=== PATIENT | female | born 1960 | race Caucasian/White ===

== ENCOUNTER 2018-01-17 07:36 | Emergency (ER) | payer OTHER ==
[~2018-01-17] VITALS: Ht 157.5 cm; Wt 95.5 kg
[2018-01-17 08:02] LABS: BASOPHILS % (AUTO) 0.2 % (0-1); EOSINOPHILS % (AUTO) 0.1 % (0-6); HEMATOCRIT 44.5 % (35.0-45.0); HEMOGLOBIN 13.9 g/dl (12.0-16.0); LYMPHOCYTES # (AUTO) 0.2 X10'3 (1.1-4.8); LYMPHOCYTES % (AUTO) 2.6 % (21-51); MEAN CORPUSCULAR HEMOGLOBIN 23.5 PG (27.0-31.0); MEAN CORPUSCULAR HGB CONC 31.2 % (33.0-36.5); MEAN CORPUSCULAR VOLUME 75.3 FL (78-98); MEAN PLATELET VOLUME 10.3 FL (7.4-10.4); MONOCYTES # (AUTO) 0.1 X10'3 (0-0.9); MONOCYTES % (AUTO) 0.6 % (2-12); NEUTROPHILS # (AUTO) 9.3 X10'3 (1.8-7.7); NEUTROPHILS % (AUTO) 96.5 % (42-75); PLATELET COUNT 242 X10'3 (140-440); RED BLOOD COUNT 5.91 X10'6 (4.20-5.60); RED CELL DISTRIBUTION WIDTH 19.2 % (11.5-14.5); WHITE BLOOD COUNT 9.7 X10'3 (4.5-11.0)
[2018-01-17 08:12] LABS: INR 1.1 INR; PARTIAL THROMBOPLASTIN TIME 27 SECONDS (22-32); PROTHROMBIN TIME 11.4 SECONDS (9.0-12.0)
[2018-01-17] MEDS ORDERED: etomidate 2mg/ml inj. IV ONE (08:15)
[2018-01-17] MEDS ORDERED: heparin 10,000 units/1 ML INJ IV ONE (08:15)
[2018-01-17] MEDS ORDERED: fentaNYL/PF 50MCG/1 ML 2ML syringe IV ONE (08:15)
[2018-01-17] MEDS ORDERED: ondansetron/PF 4mg/2ml inj IV ONE (08:15)
[2018-01-17 08:17] LABS: ALANINE AMINOTRANSFERASE 88 U/L (12-78); ALBUMIN 3.4 G/DL (3.4-5.0); ALBUMIN/GLOBULIN RATIO 0.9 (1.1-1.5); ALKALINE PHOSPHATASE 104 IU/L (46-116); ANION GAP 11 (8-16); ASPARTATE AMINO TRANSFERASE 134 U/L (10-37); BILIRUBIN,TOTAL 1.4 MG/DL (0.1-1.0); BLOOD UREA NITROGEN 32 MG/DL (7-18); BUN/CREATININE RATIO 13.3 (6.6-38.0); CALCIUM 9.2 MG/DL (8.5-10.1); CHLORIDE 104 MMOL/L (99-107); GLUCOSE 181 MG/DL (70-104); POTASSIUM 4.4 MMOL/L (3.5-5.1); SODIUM 137 MMOL/L (135-145); TOTAL CARBON DIOXIDE 22.3 MMOL/L (24-32); TOTAL PROTEIN 7.3 G/DL (6.4-8.2); eGFR 21 ML/MIN
[2018-01-17 08:26] LABS: D-DIMER 1.91 MG/L FEU (0-0.50)
[2018-01-17] MEDS ORDERED: normal saline 1000ml 1,000 ML IV ONE (08:30)
[2018-01-17 08:35] LABS: ANISOCYTOSIS 2+; BANDS% (MANUAL) 4 % (0-10); LYMPHOCYTES % (MANUAL) 3 % (21-51); MONOCYTES % (MANUAL) 1 % (2-12); NEUTROPHILS % (MANUAL) 92 % (42-75); PLATELET ESTIMATE NORMAL; TOTAL CELLS COUNTED 100
[2018-01-17 08:36] LABS: ELLIPTOCYTES 1+
[2018-01-17 10:09] VITALS: BP 76/48
[2018-01-18] MEDS ORDERED: GLIP2.5T3 PO (23:22)
[2018-01-18] MEDS ORDERED: MOME17SP BOTHNARES (23:22)
[2018-01-18] MEDS ORDERED: PROG100C16 PO (23:22)
[2018-01-18] MEDS ORDERED: APIX5TAB3 PO (23:22)
[2018-01-18] MEDS ORDERED: DULO-31 PO (23:22)
[2018-01-18] MEDS ORDERED: vitamin b12 (23:22)
[2018-01-18] MEDS ORDERED: PREG200C PO (23:22)
[2018-01-18] MEDS ORDERED: ESCI5TAB PO (23:22)
[2018-01-18] MEDS ORDERED: ATOR40TA PO (23:22)
[2018-01-18] MEDS ORDERED: OMEP40CA37 PO (23:22)
[2018-01-18] MEDS ORDERED: ATEN-169 PO (23:26)
== END 2018-01-17 10:14 | disposition home or self-care (01) ==
LOC: ER 07:37
DX: R07.9 Chest pain, unspecified (principal); R42 Dizziness and giddiness; I48.0 Paroxysmal atrial fibrillation; N28.9 Disorder of kidney and ureter, unspecified; Z98.61 Coronary angioplasty status
CPT/HCPCS: 36415; 71045; 80053; 83880; 84439; 84443; 84484; 85025; 85379; 85610; 85730; 92960; 93005; 96361; 96374; 96375; 99285; J1644; J2405; J3010; J3490; J7030

== ENCOUNTER 2018-01-18 12:52 | Inpatient (IN) | payer OTHER ==
[~2018-01-18] VITALS: Ht 157.5 cm; Wt 104.8 kg
[2018-01-18] MEDS ORDERED: oxyCODONE IR 5mg (immed. release) tablet PO ONE (15:05)
[2018-01-18 15:38] LABS: BASOPHILS % (AUTO) 0.3 % (0-1); EOSINOPHILS # (AUTO) 0.1 X10'3 (0-0.9); EOSINOPHILS % (AUTO) 2.1 % (0-6); HEMATOCRIT 38.9 % (35.0-45.0); HEMOGLOBIN 12.7 g/dl (12.0-16.0); LYMPHOCYTES # (AUTO) 0.4 X10'3 (1.1-4.8); LYMPHOCYTES % (AUTO) 6.6 % (21-51); MEAN CORPUSCULAR HEMOGLOBIN 23.7 PG (27.0-31.0); MEAN CORPUSCULAR HGB CONC 32.6 % (33.0-36.5); MEAN CORPUSCULAR VOLUME 72.8 FL (78-98); MEAN PLATELET VOLUME 9.8 FL (7.4-10.4); MONOCYTES # (AUTO) 0.3 X10'3 (0-0.9); MONOCYTES % (AUTO) 5.3 % (2-12); NEUTROPHILS % (AUTO) 85.7 % (42-75); PLATELET COUNT 176 X10'3 (140-440); RED BLOOD COUNT 5.34 X10'6 (4.20-5.60); RED CELL DISTRIBUTION WIDTH 19.2 % (11.5-14.5); WHITE BLOOD COUNT 5.8 X10'3 (4.5-11.0)
[2018-01-18 15:46] LABS: INR 1.1 INR; PARTIAL THROMBOPLASTIN TIME 31 SECONDS (22-32); PROTHROMBIN TIME 11.1 SECONDS (9.0-12.0)
[2018-01-18 15:58] LABS: ALANINE AMINOTRANSFERASE 125 U/L (12-78); ALBUMIN 3.1 G/DL (3.4-5.0); ALBUMIN/GLOBULIN RATIO 0.8 (1.1-1.5); ALKALINE PHOSPHATASE 106 IU/L (46-116); ANION GAP 10 (8-16); ASPARTATE AMINO TRANSFERASE 78 U/L (10-37); BILIRUBIN,TOTAL 1.7 MG/DL (0.1-1.0); BLOOD UREA NITROGEN 46 MG/DL (7-18); BUN/CREATININE RATIO 23.4 (6.6-38.0); CHLORIDE 107 MMOL/L (99-107); CREATININE 1.97 MG/DL (0.40-0.90); GLUCOSE 137 MG/DL (70-104); MAGNESIUM 2.2 MG/DL (1.5-2.4); SODIUM 138 MMOL/L (135-145); TOTAL CARBON DIOXIDE 20.7 MMOL/L (24-32); TOTAL PROTEIN 6.9 G/DL (6.4-8.2); eGFR 26 ML/MIN
[2018-01-18] MEDS ORDERED: acetaminophen 325mg tablet PO PRN ×2 (17:05)
[2018-01-18] MEDS ORDERED: magnesium 4gm in 100ml NS 100 ML IV PRN (17:05)
[2018-01-18] MEDS ORDERED: potassium Cl 20 mEq SR tablet PO PRN ×2 (17:05)
[2018-01-18] MEDS ORDERED: dextrose ORAL solution 15 GM/59 ML bottle PO PRN ×2 (17:05)
[2018-01-18] MEDS ORDERED: mag hydrox/Alum hydrox/simeth 30ml oral suspension PO PRN (17:05)
[2018-01-18] MEDS ORDERED: MESSAGE TO PHARMACY PO ONE (17:05)
[2018-01-18] MEDS ORDERED: glucagon, human recombinant 1mg kit SUBCUT PRN (17:05)
[2018-01-18] MEDS ORDERED: ondansetron/PF 4mg/2ml inj IV PRN (17:05)
[2018-01-18] MEDS ORDERED: magnesium hydroxide 30ml (MOM) UD suspension PO PRN (17:05)
[2018-01-18] MEDS ORDERED: potassium Cl 40MEQ/NS 500ml 500 ML IV PRN ×2 (17:05)
[2018-01-18] MEDS ORDERED: insulin Lispro (HumaLOG) vial - multi-dose SQ SCH (17:05)
[2018-01-18] MEDS ORDERED: magnesium 2GM in 50ml NS 50 ML IV PRN (17:05)
[2018-01-18] MEDS ORDERED: HYDROcodone/acetaminophen 5mg/325mg tablet PO PRN (17:05)
[2018-01-18] MEDS ORDERED: magnesium Cl slow-release 64mg tablet PO PRN (17:05)
[2018-01-18] MEDS ORDERED: dextrose 50%-water 50ml dispensing syringe IV PRN ×2 (17:05)
[2018-01-18 18:12] LABS: CLARITY,URINE CLEAR (Clear); COLOR,URINE ORANGE (Yellow); LEUKOCYTE ESTERASE ,URINE NEGATIVE (Neg); OCCULT BLOOD,URINE NEGATIVE (Neg)
[2018-01-18 18:19] LABS: UA COLLECTION TYPE CLN CATCH MIDSTREAM
[2018-01-18 18:22] LABS: BACTERIA,URINE NONE SEEN /HPF (Neg); MUCUS STRANDS NONE SEEN /LPF (Neg); RBC,URINE NONE SEEN /HPF (0-2); SQUAMOUS EPITHELIAL CELL,UR FEW /LPF (FEW); WBC,URINE NONE SEEN /HPF (0-4)
[2018-01-18 18:31] LABS: HEMOGLOBIN A1C 6.2 % (4.5-6.2)
[2018-01-18 18:46] LABS: URINE AMPHETAMINE SCREEN NEGATIVE (Neg); URINE BARBITUATE SCREEN NEGATIVE (Neg); URINE BENZODIAZEPINES SCREEN NEGATIVE (Neg); URINE CANNABINOID SCREEN POSITIVE (Neg); URINE COCAINE SCREEN NEGATIVE (Neg); URINE METHADONE SCREEN NEGATIVE (Neg); URINE OPIATE SCREEN NEGATIVE (Neg); URINE PHENCYCLIDINE SCREEN NEGATIVE (Neg)
[2018-01-18] MEDS: normal saline 1000ml 1,000 ML IV SCH (18:46)
[2018-01-18] MEDS: HYDROcodone/acetaminophen 10/325mg tab PO PRN ×2 (19:10→23:23)
[2018-01-18 19:30] VITALS: BP 90/49
[2018-01-18] MEDS: insulin glargine (Lantus) pen - multi-dose SQ SCH (21:00)
[2018-01-18] MEDS ORDERED: temazepam 15mg capsule PO PRN (21:00)
[2018-01-18] MEDS: heparin, porcine 5000 units/ml vial SQ SCH (21:05)
[2018-01-18] MEDS ORDERED: normal saline 250ml IV soln 250 ML IV ONE (21:25)
[2018-01-18 22:00] VITALS: BP 88/48
[2018-01-18] MEDS ORDERED: normal saline 1000ml 1,000 ML IVB ONE (23:21)
[2018-01-18] MEDS ORDERED: DULO-31 PO (23:22)
[2018-01-18] MEDS ORDERED: ESCI5TAB PO (23:22)
[2018-01-18] MEDS ORDERED: GLIP2.5T3 PO (23:22)
[2018-01-18] MEDS ORDERED: OMEP40CA37 PO (23:22)
[2018-01-18] MEDS ORDERED: vitamin b12 (23:22)
[2018-01-18] MEDS ORDERED: APIX5TAB3 PO (23:22)
[2018-01-18] MEDS ORDERED: ATOR40TA PO (23:22)
[2018-01-18] MEDS ORDERED: PROG100C16 PO (23:22)
[2018-01-18] MEDS ORDERED: MOME17SP BOTHNARES (23:22)
[2018-01-18] MEDS ORDERED: PREG200C PO (23:22)
[2018-01-18] MEDS ORDERED: ATEN-169 PO (23:26)
[2018-01-19] VITALS (20 sets, daily range): BP systolic 76–123; BP diastolic 46–76
[2018-01-19] MEDS: normal saline 1000ml 1,000 ML IV SCH (00:21)
[2018-01-19] MEDS ORDERED: normal saline 1000ml 1,000 ML IV ONE (01:20)
[2018-01-19 01:57] LABS: ALBUMIN 2.5 G/DL (3.4-5.0); ANION GAP 12 (8-16); BLOOD UREA NITROGEN 47 MG/DL (7-18); BUN/CREATININE RATIO 26.1 (6.6-38.0); CALCIUM 8.3 MG/DL (8.5-10.1); CHLORIDE 109 MMOL/L (99-107); GLUCOSE 146 MG/DL (70-104); MAGNESIUM 2.2 MG/DL (1.5-2.4); POTASSIUM 4.6 MMOL/L (3.5-5.1); SODIUM 137 MMOL/L (135-145); TOTAL CARBON DIOXIDE 15.8 MMOL/L (24-32); TROPONIN I < 0.04 NG/ML (0.0-0.05); eGFR 29 ML/MIN
[2018-01-19 02:10] LABS: BASOPHILS % (AUTO) 0.6 % (0-1); EOSINOPHILS # (AUTO) 0.1 X10'3 (0-0.9); EOSINOPHILS % (AUTO) 3.1 % (0-6); HEMATOCRIT 35.2 % (35.0-45.0); HEMOGLOBIN 11.3 g/dl (12.0-16.0); LYMPHOCYTES # (AUTO) 0.4 X10'3 (1.1-4.8); LYMPHOCYTES % (AUTO) 9.6 % (21-51); MEAN CORPUSCULAR HEMOGLOBIN 23.8 PG (27.0-31.0); MEAN CORPUSCULAR VOLUME 74.3 FL (78-98); MEAN PLATELET VOLUME 10.9 FL (7.4-10.4); MONOCYTES # (AUTO) 0.2 X10'3 (0-0.9); MONOCYTES % (AUTO) 4.6 % (2-12); NEUTROPHILS # (AUTO) 3.8 X10'3 (1.8-7.7); NEUTROPHILS % (AUTO) 82.1 % (42-75); PLATELET COUNT 143 X10'3 (140-440); RED BLOOD COUNT 4.74 X10'6 (4.20-5.60); RED CELL DISTRIBUTION WIDTH 19.5 % (11.5-14.5); WHITE BLOOD COUNT 4.7 X10'3 (4.5-11.0)
[2018-01-19 02:37] LABS: ANISOCYTOSIS 2+; ELLIPTOCYTES FEW; LARGE PLATELETS FEW; PLATELET ESTIMATE NORMAL
[2018-01-19] MEDS ORDERED: digoxin 250mcg/ml 2ml ampule IV ONE (02:55)
[2018-01-19] MEDS ORDERED: amiodarone 150mg/dext, iso-os 100 ML IV ONE (03:55)
[2018-01-19] MEDS: amiodarone/D5 360MG/200ML BAG 200 ML IV SCH ×4 (04:20→14:15)
[2018-01-19] MEDS: heparin, porcine 5000 units/ml vial SQ SCH (07:31)
[2018-01-19] MEDS: pantoprazole 40mg Tablet.DR PO SCH (07:31)
[2018-01-19] MEDS: atorvastatin 20mg tablet PO SCH (07:31)
[2018-01-19] MEDS: K and/or MAG REPLACEMENT MC SCH (07:45)
[2018-01-19] MEDS ORDERED: escitalopram 20mg tablet PO SCH (08:00)
[2018-01-19] MEDS ORDERED: citalopram 20mg tablet PO SCH (08:00)
[2018-01-19] MEDS ORDERED: atenolol 25mg tablet PO SCH (08:00)
[2018-01-19 09:29] LABS: ALANINE AMINOTRANSFERASE 102 U/L (12-78); ALBUMIN/GLOBULIN RATIO 0.7 (1.1-1.5); ALKALINE PHOSPHATASE 97 IU/L (46-116); ASPARTATE AMINO TRANSFERASE 57 U/L (10-37); BILIRUBIN,TOTAL 1.1 MG/DL (0.1-1.0)
[2018-01-19] MEDS: HYDROcodone/acetaminophen 10/325mg tab PO PRN ×2 (10:40→20:16)
[2018-01-19] MEDS ORDERED: non-formulary drug (Pregabalin (Lyrica) 1 CAP) PO SCH (16:00)
[2018-01-19] MEDS: atenolol 25mg tablet PO SCH (20:15)
[2018-01-19] MEDS: apixaban 5mg tablet PO SCH (20:15)
[2018-01-19] MEDS: pregabalin 25mg capsule PO SCH (20:16)
[2018-01-19] MEDS: insulin glargine (Lantus) pen - multi-dose SQ SCH (21:00)
[2018-01-19] MEDS ORDERED: pregabalin 75mg capsule PO SCH (21:00)
[2018-01-20] MEDS: HYDROcodone/acetaminophen 10/325mg tab PO PRN ×3 (01:15→19:35)
[2018-01-20 03:00] VITALS: BP 103/47
[2018-01-20 06:30] VITALS: BP 101/39
[2018-01-20 07:17] LABS: BASOPHILS % (AUTO) 0.5 % (0-1); EOSINOPHILS # (AUTO) 0.2 X10'3 (0-0.9); EOSINOPHILS % (AUTO) 5.7 % (0-6); HEMOGLOBIN 10.9 g/dl (12.0-16.0); LYMPHOCYTES # (AUTO) 0.4 X10'3 (1.1-4.8); LYMPHOCYTES % (AUTO) 10.9 % (21-51); MEAN CORPUSCULAR HEMOGLOBIN 23.9 PG (27.0-31.0); MEAN CORPUSCULAR VOLUME 74.6 FL (78-98); MEAN PLATELET VOLUME 10.7 FL (7.4-10.4); MONOCYTES # (AUTO) 0.3 X10'3 (0-0.9); MONOCYTES % (AUTO) 8.4 % (2-12); NEUTROPHILS # (AUTO) 2.7 X10'3 (1.8-7.7); NEUTROPHILS % (AUTO) 74.5 % (42-75); PLATELET COUNT 126 X10'3 (140-440); RED BLOOD COUNT 4.56 X10'6 (4.20-5.60); RED CELL DISTRIBUTION WIDTH 19.7 % (11.5-14.5); WHITE BLOOD COUNT 3.6 X10'3 (4.5-11.0)
[2018-01-20 07:37] LABS: ALANINE AMINOTRANSFERASE 63 U/L (12-78); ALBUMIN 2.1 G/DL (3.4-5.0); ALBUMIN/GLOBULIN RATIO 0.6 (1.1-1.5); ALKALINE PHOSPHATASE 80 IU/L (46-116); ANION GAP 8 (8-16); ASPARTATE AMINO TRANSFERASE 27 U/L (10-37); BLOOD UREA NITROGEN 31 MG/DL (7-18); CALCIUM 8.3 MG/DL (8.5-10.1); CHLORIDE 112 MMOL/L (99-107); CREATININE 1.24 MG/DL (0.40-0.90); GLUCOSE 126 MG/DL (70-104); POTASSIUM 4.6 MMOL/L (3.5-5.1); SODIUM 141 MMOL/L (135-145); TOTAL CARBON DIOXIDE 21.4 MMOL/L (24-32); TOTAL PROTEIN 5.4 G/DL (6.4-8.2); eGFR 44 ML/MIN
[2018-01-20 07:40] LABS: LARGE PLATELETS FEW; PLATELET ESTIMATE DECREASED
[2018-01-20] MEDS: pantoprazole 40mg Tablet.DR PO SCH (07:41)
[2018-01-20] MEDS: apixaban 5mg tablet PO SCH ×2 (07:42→19:34)
[2018-01-20] MEDS: atorvastatin 20mg tablet PO SCH (07:43)
[2018-01-20] MEDS: pregabalin 25mg capsule PO SCH ×3 (07:43→21:00)
[2018-01-20] MEDS: citalopram 20mg tablet PO SCH (07:43)
[2018-01-20] MEDS: duloxetine 30mg CAPSULE.DR PO SCH (07:44)
[2018-01-20] MEDS: atenolol 25mg tablet PO SCH ×2 (07:45→19:34)
[2018-01-20] MEDS: K and/or MAG REPLACEMENT MC SCH (08:00)
[2018-01-20] MEDS ORDERED: escitalopram 20mg tablet PO SCH (08:00)
[2018-01-20] MEDS ORDERED: non-formulary drug (Atorvastatin Calcium* (Lipitor*) 1 TAB) PO SCH (08:00)
[2018-01-20] MEDS ORDERED: atenolol 50mg tablet PO SCH (08:00)
[2018-01-20 11:00] VITALS: BP 145/81
[2018-01-20 16:22] VITALS: BP 135/81
[2018-01-20] MEDS ORDERED: NUT.TX.GLUC.INTOLER,LAC-FR,REG (BOOST GLUCOSE CONTROL) 237 ML PO SCH (18:00)
[2018-01-20 19:00] VITALS: BP 119/76
[2018-01-20] MEDS: insulin glargine (Lantus) pen - multi-dose SQ SCH (21:00)
[2018-01-20 23:00] VITALS: BP 119/69
[2018-01-21] MEDS: HYDROcodone/acetaminophen 10/325mg tab PO PRN ×3 (01:02→13:14)
[2018-01-21 03:00] VITALS: BP 113/64
[2018-01-21 05:41] LABS: BASOPHILS % (AUTO) 0.6 % (0-1); EOSINOPHILS # (AUTO) 0.4 X10'3 (0-0.9); EOSINOPHILS % (AUTO) 8.7 % (0-6); HEMATOCRIT 34.8 % (35.0-45.0); HEMOGLOBIN 11.3 g/dl (12.0-16.0); LYMPHOCYTES # (AUTO) 0.5 X10'3 (1.1-4.8); MEAN CORPUSCULAR HEMOGLOBIN 23.9 PG (27.0-31.0); MEAN CORPUSCULAR HGB CONC 32.5 % (33.0-36.5); MEAN CORPUSCULAR VOLUME 73.6 FL (78-98); MEAN PLATELET VOLUME 10.9 FL (7.4-10.4); MONOCYTES # (AUTO) 0.4 X10'3 (0-0.9); MONOCYTES % (AUTO) 8.9 % (2-12); NEUTROPHILS # (AUTO) 2.8 X10'3 (1.8-7.7); NEUTROPHILS % (AUTO) 68.8 % (42-75); PLATELET COUNT 129 X10'3 (140-440); RED BLOOD COUNT 4.72 X10'6 (4.20-5.60); RED CELL DISTRIBUTION WIDTH 19.4 % (11.5-14.5); WHITE BLOOD COUNT 4.1 X10'3 (4.5-11.0)
[2018-01-21 06:06] LABS: ALANINE AMINOTRANSFERASE 55 U/L (12-78); ALBUMIN 2.2 G/DL (3.4-5.0); ALBUMIN/GLOBULIN RATIO 0.6 (1.1-1.5); ALKALINE PHOSPHATASE 81 IU/L (46-116); ANION GAP 9 (8-16); ASPARTATE AMINO TRANSFERASE 24 U/L (10-37); BILIRUBIN,TOTAL 1.1 MG/DL (0.1-1.0); BLOOD UREA NITROGEN 26 MG/DL (7-18); BUN/CREATININE RATIO 22.8 (6.6-38.0); CALCIUM 8.6 MG/DL (8.5-10.1); CHLORIDE 110 MMOL/L (99-107); CREATININE 1.14 MG/DL (0.40-0.90); GLUCOSE 112 MG/DL (70-104); MAGNESIUM 1.9 MG/DL (1.5-2.4); POTASSIUM 4.5 MMOL/L (3.5-5.1); SODIUM 141 MMOL/L (135-145); TOTAL CARBON DIOXIDE 22.3 MMOL/L (24-32); TOTAL PROTEIN 5.6 G/DL (6.4-8.2); eGFR 49 ML/MIN
[2018-01-21 06:30] VITALS: BP 122/66
[2018-01-21 07:06] LABS: ANISOCYTOSIS 2+; ELLIPTOCYTES 1+; LARGE PLATELETS FEW; PLATELET ESTIMATE DECREASED
[2018-01-21] MEDS: atorvastatin 20mg tablet PO SCH (07:36)
[2018-01-21] MEDS: apixaban 5mg tablet PO SCH (07:37)
[2018-01-21] MEDS: duloxetine 30mg CAPSULE.DR PO SCH (07:37)
[2018-01-21] MEDS: pantoprazole 40mg Tablet.DR PO SCH (07:37)
[2018-01-21] MEDS: citalopram 20mg tablet PO SCH (07:38)
[2018-01-21] MEDS: atenolol 25mg tablet PO SCH (07:38)
[2018-01-21] MEDS: pregabalin 25mg capsule PO SCH ×2 (07:38→13:13)
[2018-01-21] MEDS: K and/or MAG REPLACEMENT MC SCH (08:00)
[2018-01-21 11:00] VITALS: BP 123/74
== END 2018-01-21 15:25 | disposition home or self-care (01) | DRG 184 ==
LOC: ER 12:52 → ED HOLD 17:03 → EDBEDREQ 17:55 → ORTHO 4S 19:30 → PCU 3S 01-19 02:35
PROVIDERS: ADMIT Internal Medicine; ATTEND Internal Medicine
DX: S22.42XA Multiple fractures of ribs, left side, initial encounter for closed fracture (principal); J93.9 Pneumothorax, unspecified; E11.22 Type 2 diabetes mellitus with diabetic chronic kidney disease; N17.9 Acute kidney failure, unspecified; E11.8 Type 2 diabetes mellitus with unspecified complications; N18.3 Chronic kidney disease, stage 3 (moderate); I95.9 Hypotension, unspecified; J90 Pleural effusion, not elsewhere classified; I48.2 Chronic atrial fibrillation; I48.91 Unspecified atrial fibrillation; E86.0 Dehydration; E78.5 Hyperlipidemia, unspecified; M79.7 Fibromyalgia; F12.90 Cannabis use, unspecified, uncomplicated; G89.29 Other chronic pain; J45.909 Unspecified asthma, uncomplicated; K21.9 Gastro-esophageal reflux disease without esophagitis; K57.90 Diverticulosis of intestine, part unspecified, without perforation or abscess without bleeding; Z98.84 Bariatric surgery status; Z79.01 Long term (current) use of anticoagulants; Y93.89 Activity, other specified; Y92.89 Other specified places as the place of occurrence of the external cause; W18.39XA Other fall on same level, initial encounter; E66.9 Obesity, unspecified
CPT/HCPCS: 36415; 70450; 71046; 71100; 71250; 80053; 80305; 81001; 82948; 83036; 83605; 83735; 83880; 84443; 84484; 85025; 85610; 85730; 87070; 93005; 93306; 97116; 97162; 97530; 99285; J0282; J1160; J1644; J1815; J2405; J7030

== ENCOUNTER 2018-02-02 06:05 | Inpatient (IN) | payer OTHER ==
[~2018-02-02] VITALS: Ht 157.5 cm; Wt 97.7 kg
[~2018-02-02 06:05] MED LIST: APIX5TAB3 PO; ATEN-169 PO; ATOR40TA PO; DULO-31 PO; ESCI5TAB PO; GLIP2.5T3 PO; MOME17SP BOTHNARES; OMEP40CA37 PO; PREG200C PO; PROG100C16 PO; vitamin b12
[2018-02-02 07:04] LABS: BASOPHILS % (AUTO) 0.3 % (0-1); EOSINOPHILS # (AUTO) 0.7 X10'3 (0-0.9); EOSINOPHILS % (AUTO) 8.2 % (0-6); HEMATOCRIT 32.5 % (35.0-45.0); HEMOGLOBIN 10.3 g/dl (12.0-16.0); LYMPHOCYTES % (AUTO) 12.3 % (21-51); MEAN CORPUSCULAR HEMOGLOBIN 24.2 PG (27.0-31.0); MEAN CORPUSCULAR HGB CONC 31.6 % (33.0-36.5); MEAN CORPUSCULAR VOLUME 76.8 FL (78-98); MEAN PLATELET VOLUME 9.4 FL (7.4-10.4); MONOCYTES # (AUTO) 0.8 X10'3 (0-0.9); MONOCYTES % (AUTO) 9.7 % (2-12); NEUTROPHILS # (AUTO) 5.7 X10'3 (1.8-7.7); NEUTROPHILS % (AUTO) 69.5 % (42-75); PLATELET COUNT 342 X10'3 (140-440); RED BLOOD COUNT 4.23 X10'6 (4.20-5.60); RED CELL DISTRIBUTION WIDTH 22.6 % (11.5-14.5); WHITE BLOOD COUNT 8.2 X10'3 (4.5-11.0)
[2018-02-02 07:27] LABS: ALANINE AMINOTRANSFERASE 22 U/L (12-78); ALBUMIN 2.1 G/DL (3.4-5.0); ALBUMIN/GLOBULIN RATIO 0.5 (1.1-1.5); ALKALINE PHOSPHATASE 122 IU/L (46-116); ANION GAP 9 (8-16); ASPARTATE AMINO TRANSFERASE 18 U/L (10-37); BILIRUBIN,TOTAL 0.4 MG/DL (0.1-1.0); BLOOD UREA NITROGEN 29 MG/DL (7-18); BUN/CREATININE RATIO 24.2 (6.6-38.0); CALCIUM 8.2 MG/DL (8.5-10.1); CHLORIDE 112 MMOL/L (99-107); GLUCOSE 162 MG/DL (70-104); POTASSIUM 4.6 MMOL/L (3.5-5.1); SODIUM 143 MMOL/L (135-145); TOTAL CARBON DIOXIDE 22.1 MMOL/L (24-32); TOTAL PROTEIN 6.6 G/DL (6.4-8.2); eGFR 46 ML/MIN
[2018-02-02] MEDS ORDERED: ondansetron/PF 4mg/2ml inj IV PRN ×2 (09:25→09:30)
[2018-02-02] MEDS ORDERED: acetaminophen 325mg tablet PO PRN ×2 (09:25→09:30)
[2018-02-02] MEDS ORDERED: mag hydrox/Alum hydrox/simeth 30ml oral suspension PO PRN ×2 (09:25→09:30)
[2018-02-02] MEDS ORDERED: magnesium hydroxide 30ml (MOM) UD suspension PO PRN ×2 (09:25→09:30)
[2018-02-02] MEDS ORDERED: magnesium 2GM in 50ml NS 50 ML IV PRN (09:30)
[2018-02-02] MEDS ORDERED: potassium Cl 40MEQ/NS 500ml 500 ML IV PRN ×2 (09:30)
[2018-02-02] MEDS ORDERED: magnesium Cl slow-release 64mg tablet PO PRN (09:30)
[2018-02-02] MEDS ORDERED: HYDROcodone/acetaminophen 5mg/325mg tablet PO PRN (09:30)
[2018-02-02] MEDS ORDERED: potassium Cl 20 mEq SR tablet PO PRN ×2 (09:30)
[2018-02-02] MEDS ORDERED: magnesium 4gm in 100ml NS 100 ML IV PRN (09:30)
[2018-02-02] MEDS ORDERED: bisacodyl 10mg suppository rectal RC PRN (09:30)
[2018-02-02] MEDS: furosemide 20 MG/2 ML vial IV SCH ×2 (09:43→19:46)
[2018-02-02] MEDS: HYDROcodone/acetaminophen 10/325mg tab PO PRN ×3 (09:50→19:42)
[2018-02-02] MEDS: CefTRIAXone/D5W-Rocephin 1gm 50 ML IV SCH (09:51)
[2018-02-02] MEDS ORDERED: CYAN10006 IM (10:52)
[2018-02-02] MEDS: morphine 4 MG/ML inj SYRINge IV PRN ×2 (11:20→19:59)
[2018-02-02] MEDS ORDERED: cyanocobalamin 1,000 mcg/ml inj IM SCH (11:25)
[2018-02-02] MEDS ORDERED: non-formulary drug (Pregabalin (Lyrica) 1 CAP) PO SCH (16:00)
[2018-02-02] MEDS: pregabalin 25mg capsule PO SCH (17:03)
[2018-02-02] MEDS ORDERED: progesterone, micronized 100mg capsule PO ONE (17:15)
[2018-02-02] MEDS: progesterone, micronized 100mg capsule PO SCH (17:17)
[2018-02-02] MEDS: docusate sod 100mg capsule PO SCH (19:43)
[2018-02-02] MEDS ORDERED: metoprolol tartrate 1mg/ml inj IV ONE (21:30)
[2018-02-02 22:15] VITALS: BP 102/78
[2018-02-03] VITALS (24 sets, daily range): BP systolic 82–130; BP diastolic 49–90
[2018-02-03] MEDS: pregabalin 25mg capsule PO SCH ×3 (00:19→16:21)
[2018-02-03] MEDS: HYDROcodone/acetaminophen 10/325mg tab PO PRN ×3 (02:46→20:09)
[2018-02-03] MEDS ORDERED: metoprolol tartrate 1mg/ml inj IV ONE (03:10)
[2018-02-03 06:50] LABS: BASOPHILS # (AUTO) 0.1 X10'3 (0-0.2); BASOPHILS % (AUTO) 1.4 % (0-1); EOSINOPHILS % (AUTO) 11.7 % (0-6); HEMATOCRIT 34.6 % (35.0-45.0); LYMPHOCYTES # (AUTO) 1.9 X10'3 (1.1-4.8); LYMPHOCYTES % (AUTO) 21.9 % (21-51); MEAN CORPUSCULAR HEMOGLOBIN 24.3 PG (27.0-31.0); MEAN CORPUSCULAR HGB CONC 31.7 % (33.0-36.5); MEAN CORPUSCULAR VOLUME 76.7 FL (78-98); MEAN PLATELET VOLUME 9.7 FL (7.4-10.4); MONOCYTES % (AUTO) 11.6 % (2-12); NEUTROPHILS # (AUTO) 4.6 X10'3 (1.8-7.7); NEUTROPHILS % (AUTO) 53.4 % (42-75); PLATELET COUNT 384 X10'3 (140-440); RED BLOOD COUNT 4.51 X10'6 (4.20-5.60); RED CELL DISTRIBUTION WIDTH 22.3 % (11.5-14.5); WHITE BLOOD COUNT 8.6 X10'3 (4.5-11.0)
[2018-02-03 07:00] LABS: ANION GAP 8 (8-16); BLOOD UREA NITROGEN 25 MG/DL (7-18); BUN/CREATININE RATIO 20.3 (6.6-38.0); CALCIUM 8.1 MG/DL (8.5-10.1); CHLORIDE 108 MMOL/L (99-107); CREATININE 1.23 MG/DL (0.40-0.90); GLUCOSE 118 MG/DL (70-104); MAGNESIUM 1.9 MG/DL (1.5-2.4); POTASSIUM 4.4 MMOL/L (3.5-5.1); SODIUM 141 MMOL/L (135-145); TOTAL CARBON DIOXIDE 24.8 MMOL/L (24-32); eGFR 45 ML/MIN
[2018-02-03] MEDS ORDERED: non-formulary drug (Atorvastatin Calcium* (Lipitor*) 1 TAB) PO SCH (08:00)
[2018-02-03] MEDS: K and/or MAG REPLACEMENT MC SCH (08:00)
[2018-02-03] MEDS ORDERED: non-formulary drug (Omeprazole (Prilosec) 1 CAP) PO SCH (08:00)
[2018-02-03] MEDS ORDERED: PROGESTERONE MICRONIZED PO SCH (08:00)
[2018-02-03] MEDS: duloxetine 30mg CAPSULE.DR PO SCH (08:18)
[2018-02-03] MEDS: atorvastatin 20mg tablet PO SCH (08:19)
[2018-02-03] MEDS: pantoprazole 40mg Tablet.DR PO SCH (08:19)
[2018-02-03] MEDS: furosemide 20 MG/2 ML vial IV SCH (08:19)
[2018-02-03] MEDS: docusate sod 100mg capsule PO SCH ×2 (08:19→19:59)
[2018-02-03] MEDS: CefTRIAXone/D5W-Rocephin 1gm 50 ML IV SCH (08:19)
[2018-02-03] MEDS: atenolol 50mg tablet PO SCH (08:26)
[2018-02-03] MEDS ORDERED: diltiazem-NS 100mg/100ml 100 ML IV SCH (08:55)
[2018-02-03] MEDS ORDERED: LIDOcaine 1% 30ml preserv. free vial IJ STA (10:47)
[2018-02-03 12:29] LABS: GLUCOSE,BODY FLUID 127 MG/DL; LDH,BODY FLUID 378 U/L; TOTAL PROTEIN,BODY FLUID 3.7 G/DL
[2018-02-03 12:31] LABS: BFSOURCE LEFT PLEURAL FLD; PLEURAL FLUID PH 7.318 (7.63-7.65)
[2018-02-03 12:46] LABS: EOSINOPHILS,BODY FLUID 7 %; LYMPHOCYTES,BODY FLUID 82 %; MONOCYTES,BODY FLUID 4 %; NEUTROPHILS,BODY FLUID 7 %
[2018-02-03 12:48] LABS: BF RBC COUNT 146000 /CU MM; BF WBC COUNT 613 /CU MM (0-1000); BFAPPEAR BLOODY; BFCOLOR RED; BFVOLUME 49 ML
[2018-02-03] MEDS: diltiazem-NS 100mg/100ml 100 ML IV SCH (13:27)
[2018-02-04] VITALS (8 sets, daily range): BP systolic 98–122; BP diastolic 47–89
[2018-02-04] MEDS: pregabalin 25mg capsule PO SCH ×4 (00:05→23:33)
[2018-02-04] MEDS: diltiazem-NS 100mg/100ml 100 ML IV SCH (01:31)
[2018-02-04 05:55] LABS: BASOPHILS % (AUTO) 0.5 % (0-1); EOSINOPHILS # (AUTO) 0.7 X10'3 (0-0.9); EOSINOPHILS % (AUTO) 9.5 % (0-6); HEMATOCRIT 32.9 % (35.0-45.0); HEMOGLOBIN 10.3 g/dl (12.0-16.0); LYMPHOCYTES # (AUTO) 1.3 X10'3 (1.1-4.8); LYMPHOCYTES % (AUTO) 17.7 % (21-51); MEAN CORPUSCULAR HEMOGLOBIN 24.1 PG (27.0-31.0); MEAN CORPUSCULAR HGB CONC 31.3 % (33.0-36.5); MEAN CORPUSCULAR VOLUME 77.1 FL (78-98); MEAN PLATELET VOLUME 9.1 FL (7.4-10.4); MONOCYTES # (AUTO) 1.1 X10'3 (0-0.9); MONOCYTES % (AUTO) 14.6 % (2-12); NEUTROPHILS # (AUTO) 4.3 X10'3 (1.8-7.7); NEUTROPHILS % (AUTO) 57.7 % (42-75); PLATELET COUNT 316 X10'3 (140-440); RED BLOOD COUNT 4.27 X10'6 (4.20-5.60); RED CELL DISTRIBUTION WIDTH 21.8 % (11.5-14.5); WHITE BLOOD COUNT 7.5 X10'3 (4.5-11.0)
[2018-02-04 06:07] LABS: ALBUMIN 1.8 G/DL (3.4-5.0); ANION GAP 7 (8-16); BLOOD UREA NITROGEN 25 MG/DL (7-18); BUN/CREATININE RATIO 23.1 (6.6-38.0); CALCIUM 8.3 MG/DL (8.5-10.1); CHLORIDE 107 MMOL/L (99-107); CREATININE 1.08 MG/DL (0.40-0.90); GLUCOSE 111 MG/DL (70-104); MAGNESIUM 1.9 MG/DL (1.5-2.4); POTASSIUM 4.3 MMOL/L (3.5-5.1); SODIUM 139 MMOL/L (135-145); TOTAL CARBON DIOXIDE 24.7 MMOL/L (24-32); eGFR 52 ML/MIN
[2018-02-04] MEDS: K and/or MAG REPLACEMENT MC SCH (08:00)
[2018-02-04] MEDS ORDERED: LIDOcaine 1%/PF (10mg/ml) 5ml vial ONE (08:06)
[2018-02-04] MEDS: docusate sod 100mg capsule PO SCH ×2 (08:13→19:10)
[2018-02-04] MEDS: atenolol 50mg tablet PO SCH (08:13)
[2018-02-04] MEDS: pantoprazole 40mg Tablet.DR PO SCH (08:13)
[2018-02-04] MEDS: progesterone, micronized 100mg capsule PO SCH (08:14)
[2018-02-04] MEDS: duloxetine 30mg CAPSULE.DR PO SCH (08:14)
[2018-02-04] MEDS: atorvastatin 20mg tablet PO SCH (08:14)
[2018-02-04] MEDS: HYDROcodone/acetaminophen 10/325mg tab PO PRN ×4 (08:20→23:33)
[2018-02-04] MEDS: diltiazem 30mg tablet PO SCH ×3 (11:16→19:10)
[2018-02-05] VITALS (7 sets, daily range): BP systolic 84–123; BP diastolic 42–98
[2018-02-05] MEDS: diltiazem 30mg tablet PO SCH ×2 (01:30→02:00)
[2018-02-05] MEDS: morphine 4 MG/ML inj SYRINge IV PRN ×3 (03:08→20:36)
[2018-02-05 06:00] LABS: BASOPHILS # (AUTO) 0.1 X10'3 (0-0.2); EOSINOPHILS # (AUTO) 0.9 X10'3 (0-0.9); EOSINOPHILS % (AUTO) 13.5 % (0-6); HEMATOCRIT 31.3 % (35.0-45.0); LYMPHOCYTES # (AUTO) 1.5 X10'3 (1.1-4.8); MEAN CORPUSCULAR HEMOGLOBIN 24.5 PG (27.0-31.0); MEAN CORPUSCULAR HGB CONC 31.8 % (33.0-36.5); MEAN CORPUSCULAR VOLUME 76.9 FL (78-98); MEAN PLATELET VOLUME 9.1 FL (7.4-10.4); MONOCYTES % (AUTO) 14.3 % (2-12); NEUTROPHILS # (AUTO) 3.5 X10'3 (1.8-7.7); NEUTROPHILS % (AUTO) 50.2 % (42-75); PLATELET COUNT 331 X10'3 (140-440); RED BLOOD COUNT 4.08 X10'6 (4.20-5.60)
[2018-02-05 06:09] LABS: ALBUMIN 1.7 G/DL (3.4-5.0); ANION GAP 4 (8-16); BLOOD UREA NITROGEN 23 MG/DL (7-18); BUN/CREATININE RATIO 20.4 (6.6-38.0); CALCIUM 8.3 MG/DL (8.5-10.1); CHLORIDE 106 MMOL/L (99-107); CREATININE 1.13 MG/DL (0.40-0.90); GLUCOSE 121 MG/DL (70-104); MAGNESIUM 1.9 MG/DL (1.5-2.4); POTASSIUM 4.6 MMOL/L (3.5-5.1); SODIUM 137 MMOL/L (135-145); TOTAL CARBON DIOXIDE 26.7 MMOL/L (24-32); eGFR 49 ML/MIN
[2018-02-05] MEDS: docusate sod 100mg capsule PO SCH ×2 (07:50→20:32)
[2018-02-05] MEDS: pantoprazole 40mg Tablet.DR PO SCH (07:50)
[2018-02-05] MEDS: progesterone, micronized 100mg capsule PO SCH (07:50)
[2018-02-05] MEDS: atenolol 50mg tablet PO SCH (07:50)
[2018-02-05] MEDS: atorvastatin 20mg tablet PO SCH (07:50)
[2018-02-05] MEDS: pregabalin 25mg capsule PO SCH ×3 (07:51→23:35)
[2018-02-05] MEDS: HYDROcodone/acetaminophen 10/325mg tab PO PRN ×2 (07:51→23:37)
[2018-02-05] MEDS: duloxetine 30mg CAPSULE.DR PO SCH (07:51)
[2018-02-05] MEDS: K and/or MAG REPLACEMENT MC SCH (08:00)
[2018-02-05] MEDS: pregabalin 75mg capsule PO SCH (23:35)
[2018-02-06 02:00] VITALS: BP 115/70
[2018-02-06] MEDS: morphine 4 MG/ML inj SYRINge IV PRN (02:40)
[2018-02-06 05:32] LABS: BASOPHILS % (AUTO) 0.5 % (0-1); EOSINOPHILS # (AUTO) 0.8 X10'3 (0-0.9); HEMATOCRIT 34.7 % (35.0-45.0); HEMOGLOBIN 10.9 g/dl (12.0-16.0); LYMPHOCYTES # (AUTO) 1.4 X10'3 (1.1-4.8); LYMPHOCYTES % (AUTO) 22.9 % (21-51); MEAN CORPUSCULAR HEMOGLOBIN 24.3 PG (27.0-31.0); MEAN CORPUSCULAR HGB CONC 31.5 % (33.0-36.5); MEAN CORPUSCULAR VOLUME 77.3 FL (78-98); MEAN PLATELET VOLUME 9.3 FL (7.4-10.4); MONOCYTES # (AUTO) 0.7 X10'3 (0-0.9); MONOCYTES % (AUTO) 10.9 % (2-12); NEUTROPHILS # (AUTO) 3.2 X10'3 (1.8-7.7); NEUTROPHILS % (AUTO) 52.7 % (42-75); PLATELET COUNT 194 X10'3 (140-440); RED BLOOD COUNT 4.49 X10'6 (4.20-5.60); RED CELL DISTRIBUTION WIDTH 21.7 % (11.5-14.5)
[2018-02-06 06:00] VITALS: BP 100/61
[2018-02-06 06:07] LABS: ALBUMIN 1.9 G/DL (3.4-5.0); ANION GAP 7 (8-16); BLOOD UREA NITROGEN 21 MG/DL (7-18); BUN/CREATININE RATIO 22.3 (6.6-38.0); CALCIUM 8.5 MG/DL (8.5-10.1); CHLORIDE 105 MMOL/L (99-107); CREATININE 0.94 MG/DL (0.40-0.90); GLUCOSE 103 MG/DL (70-104); POTASSIUM 4.7 MMOL/L (3.5-5.1); SODIUM 136 MMOL/L (135-145); eGFR 61 ML/MIN
[2018-02-06] MEDS: atorvastatin 20mg tablet PO SCH (07:29)
[2018-02-06] MEDS: pantoprazole 40mg Tablet.DR PO SCH (07:29)
[2018-02-06] MEDS: atenolol 50mg tablet PO SCH (07:29)
[2018-02-06] MEDS: docusate sod 100mg capsule PO SCH ×2 (07:29→20:15)
[2018-02-06] MEDS: pregabalin 75mg capsule PO SCH ×2 (07:29→15:11)
[2018-02-06] MEDS: progesterone, micronized 100mg capsule PO SCH (07:30)
[2018-02-06] MEDS: pregabalin 25mg capsule PO SCH ×2 (07:30→15:11)
[2018-02-06] MEDS: duloxetine 30mg CAPSULE.DR PO SCH (07:30)
[2018-02-06] MEDS: HYDROcodone/acetaminophen 10/325mg tab PO PRN ×3 (07:34→22:01)
[2018-02-06] MEDS: K and/or MAG REPLACEMENT MC SCH (08:00)
[2018-02-06 11:00] VITALS: BP 112/70
[2018-02-06 15:00] VITALS: BP 113/56
[2018-02-06 18:00] VITALS: BP 138/50
[2018-02-06 22:00] VITALS: BP 114/60
[2018-02-07] MEDS: pregabalin 25mg capsule PO SCH ×3 (00:32→16:01)
[2018-02-07] MEDS: pregabalin 75mg capsule PO SCH ×3 (00:32→16:01)
[2018-02-07 02:00] VITALS: BP 109/57
[2018-02-07 05:34] LABS: BASOPHILS % (AUTO) 0.6 % (0-1); EOSINOPHILS # (AUTO) 0.6 X10'3 (0-0.9); EOSINOPHILS % (AUTO) 9.1 % (0-6); HEMATOCRIT 32.3 % (35.0-45.0); HEMOGLOBIN 10.4 g/dl (12.0-16.0); LYMPHOCYTES # (AUTO) 1.3 X10'3 (1.1-4.8); LYMPHOCYTES % (AUTO) 21.2 % (21-51); MEAN CORPUSCULAR HEMOGLOBIN 24.4 PG (27.0-31.0); MEAN CORPUSCULAR HGB CONC 32.1 % (33.0-36.5); MEAN CORPUSCULAR VOLUME 76.1 FL (78-98); MEAN PLATELET VOLUME 8.8 FL (7.4-10.4); MONOCYTES # (AUTO) 0.9 X10'3 (0-0.9); MONOCYTES % (AUTO) 14.7 % (2-12); NEUTROPHILS # (AUTO) 3.4 X10'3 (1.8-7.7); NEUTROPHILS % (AUTO) 54.4 % (42-75); PLATELET COUNT 301 X10'3 (140-440); RED BLOOD COUNT 4.24 X10'6 (4.20-5.60); RED CELL DISTRIBUTION WIDTH 21.5 % (11.5-14.5); WHITE BLOOD COUNT 6.3 X10'3 (4.5-11.0)
[2018-02-07 05:53] LABS: ALBUMIN 1.8 G/DL (3.4-5.0); ANION GAP 4 (8-16); BLOOD UREA NITROGEN 20 MG/DL (7-18); CALCIUM 8.6 MG/DL (8.5-10.1); CHLORIDE 106 MMOL/L (99-107); GLUCOSE 103 MG/DL (70-104); MAGNESIUM 2.1 MG/DL (1.5-2.4); SODIUM 139 MMOL/L (135-145); TOTAL CARBON DIOXIDE 29.2 MMOL/L (24-32); eGFR 57 ML/MIN
[2018-02-07 06:00] VITALS: BP 113/66
[2018-02-07] MEDS: pantoprazole 40mg Tablet.DR PO SCH (07:26)
[2018-02-07] MEDS: docusate sod 100mg capsule PO SCH ×2 (07:26→20:47)
[2018-02-07] MEDS: atorvastatin 20mg tablet PO SCH (07:26)
[2018-02-07] MEDS: duloxetine 30mg CAPSULE.DR PO SCH (07:26)
[2018-02-07] MEDS: HYDROcodone/acetaminophen 10/325mg tab PO PRN ×2 (07:28→20:51)
[2018-02-07] MEDS: progesterone, micronized 100mg capsule PO SCH (07:29)
[2018-02-07] MEDS: K and/or MAG REPLACEMENT MC SCH (08:00)
[2018-02-07] MEDS: atenolol 25mg tablet PO SCH (08:41)
[2018-02-07 11:00] VITALS: BP 123/78
[2018-02-07 15:00] VITALS: BP 122/58
[2018-02-07 18:00] VITALS: BP 146/87
[2018-02-07 22:00] VITALS: BP 102/47
[2018-02-08] MEDS: pregabalin 25mg capsule PO SCH ×2 (00:06→07:47)
[2018-02-08] MEDS: pregabalin 75mg capsule PO SCH ×2 (00:07→07:48)
[2018-02-08 04:00] VITALS: BP 107/48
[2018-02-08 06:57] VITALS: BP 118/66
[2018-02-08] MEDS: atorvastatin 20mg tablet PO SCH (07:48)
[2018-02-08] MEDS: pantoprazole 40mg Tablet.DR PO SCH (07:48)
[2018-02-08] MEDS: duloxetine 30mg CAPSULE.DR PO SCH (07:48)
[2018-02-08] MEDS: docusate sod 100mg capsule PO SCH (07:48)
[2018-02-08] MEDS: atenolol 25mg tablet PO SCH (07:48)
[2018-02-08] MEDS: progesterone, micronized 100mg capsule PO SCH (07:51)
[2018-02-08] MEDS: K and/or MAG REPLACEMENT MC SCH (08:00)
[2018-02-08 11:28] VITALS: BP 122/85
[2018-03-04] MEDS ORDERED: cyanocobalamin 1,000 mcg/ml inj IM SCH (09:00)
== END 2018-02-08 12:30 | disposition home or self-care (01) | DRG 186 ==
LOC: ER 06:06 → ED HOLD 08:50 → EDBEDREQ 21:32 → PCU 3S 22:00
PROVIDERS: ADMIT Internal Medicine; ATTEND Family Medicine
PROC: 0W9B3ZZ Drainage of Left Pleural Cavity, Percutaneous Approach (ICD-10-PCS; 2018-02-03)
PROC: 0W9B30Z Drainage of Left Pleural Cavity with Drainage Device, Percutaneous Approach (ICD-10-PCS; principal; 2018-02-04)
DX: J90 Pleural effusion, not elsewhere classified (principal); S27.1XXA Traumatic hemothorax, initial encounter; I50.9 Heart failure, unspecified; I11.0 Hypertensive heart disease with heart failure; I95.9 Hypotension, unspecified; Z86.74 Personal history of sudden cardiac arrest; Z79.01 Long term (current) use of anticoagulants; E11.9 Type 2 diabetes mellitus without complications; G47.33 Obstructive sleep apnea (adult) (pediatric); M79.7 Fibromyalgia; I48.91 Unspecified atrial fibrillation; X58.XXXA Exposure to other specified factors, initial encounter; Z96.653 Presence of artificial knee joint, bilateral; Z79.899 Other long term (current) drug therapy; Z82.49 Family history of ischemic heart disease and other diseases of the circulatory system; Z87.891 Personal history of nicotine dependence; Z90.49 Acquired absence of other specified parts of digestive tract; S22.42XD Multiple fractures of ribs, left side, subsequent encounter for fracture with routine healing; Y93.89 Activity, other specified; Y92.89 Other specified places as the place of occurrence of the external cause; Y99.8 Other external cause status
CPT/HCPCS: 32555; 32557; 36415; 71045; 71046; 71250; 73502; 80048; 80053; 82945; 82948; 83036; 83615; 83735; 83880; 83986; 84157; 85025; 87070; 87075; 89051; 93005; 97116; 97162; 97530; 99285; A6212; A6222; A6223; A6257; A6258; A6449; J0696; J1940; J2001; J2270; J3420; J3490; J7030